=== PATIENT | female | born 1970 | race Two or more races ===

== ENCOUNTER → 2019-09-23 | Emergency (ER) | payer OTHER ==
[~2019-09-23] VITALS: Ht 167.6 cm; Wt 83.0 kg
[~2019-09-23] MED LIST: cloNIDine HCL 0.1 MG TAB PO ONE
[2019-09-23 22:01] VITALS: BP 119/70
== END | disposition home or self-care (01) ==
LOC: ER 17:43
DX: H53.8 Other visual disturbances (principal); I16.0 Hypertensive urgency; I10 Essential (primary) hypertension; E11.9 Type 2 diabetes mellitus without complications; Z88.6 Allergy status to analgesic agent
CPT/HCPCS: 70450